=== PATIENT | male | born 1955 | race Caucasian/White ===

== ENCOUNTER 2018-11-01 08:24 | Day surgery (SDC) | payer OTHER ==
[2018-10-31 12:32] VITALS: BMI 41.6
[2018-11-01 10:45] VITALS: TEMP 98
[2018-11-01 11:54] VITALS: BP 121/59; PULSE 60
--- NOTE | 2018-11-02 18:51 | PATH ---
Surgical Pathology Report Patient Name: PAYTON MOROCHO [facility]. Rec. #: [id number] /Age/Gender: 1955 (Age: 62) / M Account: [id number] Location: [facility]-ENDOSCOPY Taken: 11/01/2018 Received: 11/01/2018 Reported: 11/02/2018 Physicians: Quintin Zuñiga D.O. Specimen(s) Received A: POLYP RIGHT COLON B: POLYP TRANSVERSE COLON C: POLYP DESCENDING COLON D: POLYP SIGMOID E: POLYP RECTO-SIGMOID F: RECTAL POLYP Clinical History Positive Cologuard Postoperative diagnosis: Diverticulosis, colon polyps Final Diagnosis A. COLON, RIGHT, POLYP, BIOPSY: TUBULAR ADENOMA. B. TRANSVERSE COLON, POLYP, BIOPSY: TUBULAR ADENOMA. C. DESCENDING COLON, POLYP, BIOPSY: TUBULAR ADENOMA. D. SIGMOID COLON, POLYP, BIOPSY: HYPERPLASTIC POLYP. E. RECTOSIGMOID COLON, POLYP, BIOPSY: TUBULAR ADENOMA. F. RECTAL POLYP, BIOPSY: HYPERPLASTIC POLYP. Electronically Signed Michelle Galvez M.D. Gross Description A. Received in formalin, labeled "polyp right colon" is a mukherjee, irregular portion of soft tissue measuring 0.3 cm. in greatest dimension. The specimen is submitted in toto in one cassette. B. Received in formalin, labeled "polyp transverse" is a mukherjee, irregular portion of soft tissue measuring 0.5 cm. in greatest dimension. The specimen is submitted in toto in one cassette. C. Received in formalin, labeled "polyp descending colon" is a mukherjee, irregular portion of soft tissue measuring 0.4 cm. in greatest dimension. The specimen is submitted in toto in one cassette. D. Received in formalin, labeled "polyp sigmoid" is a mukherjee, irregular portion of soft tissue measuring 0.3 cm. in greatest dimension. The specimen is submitted in toto in one cassette. E. Received in formalin, labeled "polyp rectosigmoid" is a mukherjee, irregular portion of soft tissue measuring 0.4 cm. in greatest dimension. The specimen is submitted in toto in one cassette. F. Received in formalin, labeled "polyp rectum" is a mukherjee, irregular portion of soft tissue measuring 0.2 cm. in greatest dimension. The specimen is submitted in toto in one cassette. MLSZ/11/01/2018 sanml/11/01/2018
== END 2018-11-01 11:53 | disposition home or self-care (01) ==
LOC: JASU-ENDO 08:24
PROVIDERS: ATTEND Internal Medicine Gastroenterology
PROC: 0DBL8ZX Excision of Transverse Colon, Via Natural or Artificial Opening Endoscopic, Diagnostic (ICD-10-PCS; 2018-11-01)
PROC: 0DBF8ZX Excision of Right Large Intestine, Via Natural or Artificial Opening Endoscopic, Diagnostic (ICD-10-PCS; 2018-11-01)
PROC: 0DBN8ZX Excision of Sigmoid Colon, Via Natural or Artificial Opening Endoscopic, Diagnostic (ICD-10-PCS; 2018-11-01)
PROC: 0DBP8ZX Excision of Rectum, Via Natural or Artificial Opening Endoscopic, Diagnostic (ICD-10-PCS; 2018-11-01)
PROC: 0DBM8ZX Excision of Descending Colon, Via Natural or Artificial Opening Endoscopic, Diagnostic (ICD-10-PCS; principal; 2018-11-01 09:45)
DX: K92.1 Melena (principal); K57.30 Diverticulosis of large intestine without perforation or abscess without bleeding; K62.1 Rectal polyp; K64.8 Other hemorrhoids; D12.4 Benign neoplasm of descending colon; D12.5 Benign neoplasm of sigmoid colon; D12.3 Benign neoplasm of transverse colon; I10 Essential (primary) hypertension; G47.30 Sleep apnea, unspecified; E66.9 Obesity, unspecified
CPT/HCPCS: 88305-TC